=== PATIENT | male | born 1990 | race African-American/Black ===

== ENCOUNTER 2017-01-13 15:21 | Emergency (ER) | payer MEDICARE, OTHER ==
[2017-01-13 16:06] VITALS: RESP 18
[2017-01-13] MEDS ORDERED: ORPHENADRINE 30 MG/ML 2 ML VIAL IVP STA (16:45)
[2017-01-13] MEDS ORDERED: METOCLOPRAMIDE 5 MG/ML 2 ML VIAL IVP STA (16:46)
[2017-01-13] MEDS ORDERED: diphenhydrAMINE 50 MG/ML 1 ML VIAL IVP STA (16:46)
--- NOTE | 2017-01-13 16:49 | ED ---
Headache HPI - General Chief Complaint: Headache Stated Complaint: Headache Time Seen by Provider: 01/13/17 16:34 Source: RN notes reviewed Mode of arrival: ambulatory - History of Present Illness Initial Comments: Patient is a 26-year-old male complaining of migraine-like headaches consistently for the past month. Patient reports these never had symptoms like this before. Patient reports these been taking bottles of Motrin, Tylenol and Excedrin to help with the headache however nothing is made any better. Patient states that when the headaches do occur they're 10. He states that he has to sleep them off of them to go away. Patient denies any pain at this time until the headache coming on. He states that he is concerned that there may be something wrong with his brain. Patient states that he has had no neurological abnormalities. He currently is not working. Patient states that he is currently living with his girlfriend and 4 children. He states on the headaches to currently happening the room dark. - Related Data Previous Rx's Medication Instructions Recorded Butalb/Asprin/Caff 50-325-40Mg 1 - 2 cap PO Q4HR #12 capsule 01/13/17 [Fiorinal 50-325-40 MG] Allergies Allergy/AdvReac Type Severity Reaction Status Date / Time No Known Allergies Allergy Verified 01/13/17 16:52 Review of Systems ROS Statement: Those systems with pertinent positive or pertinent negative responses have been documented in the HPI. ROS Other: All systems not noted in ROS Statement are negative. Past Medical History Past Medical History: No Reported History History of Any Multi-Drug Resistant Organisms: None Reported Past Surgical History: No Surgical Hx Reported Past Psychological History: No Psychological Hx Reported Smoking Status: Current every day smoker Past Alcohol Use History: None Reported Past Drug Use History: None Reported General Exam - General Exam Comments Initial Comments: Pleasant 26-year-old male. No distress. General appearance: alert, in no apparent distress Head exam: Present: atraumatic, normocephalic, normal inspection Eye exam: Present: normal appearance, PERRL, EOMI. Absent: scleral icterus, conjunctival injection, periorbital swelling ENT exam: Present: normal exam, mucous membranes moist Neck exam: Present: normal inspection. Absent: tenderness, meningismus, lymphadenopathy Respiratory exam: Present: normal lung sounds bilaterally. Absent: respiratory distress, wheezes, rales, rhonchi, stridor Cardiovascular Exam: Present: regular rate, normal rhythm, normal heart sounds. Absent: systolic murmur, diastolic murmur, rubs, gallop, clicks GI/Abdominal exam: Present: soft, normal bowel sounds. Absent: distended, tenderness, guarding, rebound, rigid Extremities exam: Present: normal inspection, full ROM, normal capillary refill. Absent: tenderness, pedal edema, joint swelling, calf tenderness Back exam: Present: normal inspection Neurological exam: Present: alert, oriented X3, CN II-XII intact Expanded Patient oriented to: Present: person, place, time Speech: Present: fluid speech Cranial nerves: EOM's Intact: Normal, Gag Reflex: Normal, Tongue Deviation: Normal Cerebellar function: Finger to Nose: Normal Upper motor neuron: Pronator Drift: Normal Sensory exam: Upper Extremity Light Touch: Normal, Upper Extremity Temperature: Normal, Lower Extremity Light Touch: Normal, Lower Extremity Temperature: Normal Motor strength exam: RUE: 5, LUE: 5, RLE: 5, LLE: 5 Eye Response: (4) open spontaneously Motor Response: (6) obeys commands Verbal Response: (5) oriented Ramses Total: 15 Psychiatric exam: Present: normal affect Skin exam: Present: warm, dry, intact, normal color. Absent: rash Course Vital Signs 01/13/17 01/13/17 16:03 18:15 Temperature 99 F 97.1 F L Pulse Rate 71 77 Respiratory 18 18 Rate Blood Pressure 132/67 121/66 O2 Sat by Pulse 98 100 Oximetry Medical Decision Making - Medical Decision Making Patient is a 26 year old male with headaches for one month. Labs reviewed and patient given migraine cocktail. Patient CT negative for any acute process. Patient is neurologically intact. discussed to keep a headache journal and follow up with neurologist. patient reports he does not have a headache at this time. Discussed return parameters and patient can be discharged with fioret prescrcription. Patient understands treatment plan and will comply. - Lab Data Result diagrams: 01/13/17 16:58 01/13/17 16:58 Lab Results 01/13/17 01/13/17 Range/Units 16:58 16:58 WBC 4.9 (3.8-10.6) k/uL RBC 4.57 (4.30-5.90) m/uL Hgb 13.8 (13.0-17.5) gm/dL Hct 43.6 (39.0-53.0) % MCV 95.4 (80.0-100.0) fL MCH 30.3 (25.0-35.0) pg MCHC 31.8 (31.0-37.0) g/dL RDW 13.1 (11.5-15.5) % Plt Count 222 (150-450) k/uL Neutrophils % 50 % Lymphocytes % 42 % Monocytes % 4 % Eosinophils % 2 % Basophils % 1 % Neutrophils # 2.4 (1.3-7.7) k/uL Lymphocytes # 2.0 (1.0-4.8) k/uL Monocytes # 0.2 (0-1.0) k/uL Eosinophils # 0.1 (0-0.7) k/uL Basophils # 0.1 (0-0.2) k/uL Sodium 142 (137-145) mmol/L Potassium 4.2 (3.5-5.1) mmol/L Chloride 105 (98-107) mmol/L Carbon Dioxide 27 (22-30) mmol/L Anion Gap 10 mmol/L BUN 19 (9-20) mg/dL Creatinine 0.88 (0.66-1.25) mg/dL Est GFR (MDRD) Af Amer >60 (>60 ml/min/1.73 sqM) Est GFR (MDRD) Non-Af >60 (>60 ml/min/1.73 sqM) Glucose 95 (74-99) mg/dL Calcium 9.8 (8.4-10.2) mg/dL Disposition Clinical Impression: Migraines Disposition: HOME SELF-CARE Condition: Good Instructions: Acute Headache (ED) Additional Instructions: Patient advised to follow with a primary care provider and make a headache diary in regards to the frequency and intensity of headaches. Patient advised to take the Fioricet as well as Motrin Tylenol for headaches. Recommended applying ice to the back and neck within that does occur. Return the emergency department if any alarming signs or symptoms occur. Prescriptions: Butalb/Asprin/Caff 50-325-40Mg [Fiorinal 50-325-40 MG] 1 - 2 cap PO Q4HR #12 capsule Referrals: Isma Olson MD [REFERRING] - 1-2 days Rosanna Braga MD [STAFF PHYSICIAN] - 1-2 days Time of Disposition: 17:57
[2017-01-13 17:10] LABS: Basophils # (A) 0.1 k/uL (0-0.2); Basophils % (A) 1 %; CH 30.5; CHCM 32.1; Eosinophils # (A) 0.1 k/uL (0-0.7); Eosinophils % (A) 2 %; HCT 43.6 % (39.0-53.0); HDW 2.07; HGB 13.8 gm/dL (13.0-17.5); Luc % (Auto) 2; Lymphocytes % (A) 42 %; MCH 30.3 pg (25.0-35.0); MCHC 31.8 g/dL (31.0-37.0); MCV 95.4 fL (80.0-100.0); Mean Platelet Volume 7.1; Monocytes # (A) 0.2 k/uL (0-1.0); Monocytes % (A) 4 %; Neutrophils # (A) 2.4 k/uL (1.3-7.7); Neutrophils % (A) 50 %; RBC 4.57 m/uL (4.30-5.90); RDW 13.1 % (11.5-15.5); WBC 4.9 k/uL (3.8-10.6); WBC (Perox) 4.96
[2017-01-13 17:25] LABS: Anion Gap 10 mmol/L; Blood Urea Nitrogen 19 mg/dL (9-20); Calcium 9.8 mg/dL (8.4-10.2); Carbon Dioxide 27 mmol/L (22-30); Chloride 105 mmol/L (98-107); Glucose 95 mg/dL (74-99); Non-African American GFR(MDRD) >60 (>60 ml/min/1.73 sqM); Potassium 4.2 mmol/L (3.5-5.1); Sodium 142 mmol/L (137-145)
--- NOTE | 2017-01-13 17:47 | CT ---
EXAMINATION TYPE: CT brain wo con DATE OF EXAM: 01/13/2017 5:30 PM COMPARISON: NONE HISTORY: Severe headache CT DLP: 1054.2 mGycm. Automated Exposure Control for Dose Reduction was Utilized. TECHNIQUE: CT scan of the head is performed without contrast. FINDINGS: There is no acute intracranial hemorrhage, mass effect, or midline shift identified. The ventricles and sulci are within normal limits in size. Sabillon-white matter differentiation is maintai tito. The globes are intact and the visualized sinuses are clear. IMPRESSION: No acute intracranial hemorrhage, mass effect, or midline shift is seen. Unremarkable st udy.
[2017-01-13 18:15] VITALS: BP 121/66; PULSE 77; TEMP 97.1
== END 2017-01-13 18:14 | disposition home or self-care (01) ==
LOC: EC 15:21
DX: G43.909 Migraine, unspecified, not intractable, without status migrainosus (principal); F17.200 Nicotine dependence, unspecified, uncomplicated
CPT/HCPCS: 36415; 80048; 85025; 70450; 99284; 96374; 96375 ×2; J1200; J2360; J2765

== ENCOUNTER 2023-02-06 17:55 | Emergency (ER) | payer MEDICARE, OTHER ==
[2023-02-06 18:01] VITALS: RESP 18
[2023-02-06 18:37] VITALS: PULSE 79; TEMP 98.7
--- NOTE | 2023-02-06 19:01 | ED ---
Recheck HPI - General Chief Complaint: Extremity Problem,Nontraumatic Stated Complaint: abn labs Time Seen by Provider: 02/06/23 18:40 Source: patient, police, RN notes reviewed, old records reviewed Mode of arrival: ambulatory Limitations: no limitations - History of Present Illness Initial Comments: This is a 32-year-old male DF for evaluation patient Dese for evaluation regards to abnormal outpatient lab tests. Patient presents from incarceration and presents today for evaluation of abnormal labs patient is unsure of abnormal labs patient presents as officer who is also unsure of what his abnormal labs are. Patient himself has no complaints does admit to joint pain joint pain for over a year with improvement with naproxen. MD Complaint: abnormal lab (Elevated sed rate, increased inflammatory markers or autoimmune markers) -: unknown Returns Today for: Called Because of Abnormal Lab/Test, persistent/worsening pain related to initial visit (Patient has had joint pain for over a year) Symptoms Since Prior Visit: worsening pain Associated Symptoms: none Treatments Prior to Arrival: Given Pain Meds on - Related Data Previous Rx's Medication Instructions Recorded Butalb/Asprin/Caff 50-325-40Mg 1 - 2 cap PO Q4HR #12 capsule 01/13/17 [Fiorinal 50-325-40 MG] Allergies Allergy/AdvReac Type Severity Reaction Status Date / Time No Known Allergies Allergy Verified 02/06/23 18:00 Review of Systems ROS Statement: Those systems with pertinent positive or pertinent negative responses have been documented in the HPI. ROS Other: All systems not noted in ROS Statement are negative. Past Medical History Past Medical History: No Reported History Additional Past Medical History / Comment(s): Arthritis History of Any Multi-Drug Resistant Organisms: None Reported Past Surgical History: No Surgical Hx Reported Past Psychological History: Anxiety, Depression Smoking Status: Current every day smoker Past Alcohol Use History: None Reported Past Drug Use History: None Reported General Exam Limitations: no limitations General appearance: alert, in no apparent distress Head exam: Present: atraumatic, normocephalic, normal inspection Eye exam: Present: normal appearance, PERRL, EOMI. Absent: scleral icterus, conjunctival injection, periorbital swelling ENT exam: Present: normal exam, mucous membranes moist Neck exam: Present: normal inspection. Absent: tenderness, meningismus, lymphadenopathy Respiratory exam: Present: normal lung sounds bilaterally. Absent: respiratory distress, wheezes, rales, rhonchi, stridor Cardiovascular Exam: Present: regular rate, normal rhythm, normal heart sounds. Absent: systolic murmur, diastolic murmur, rubs, gallop, clicks GI/Abdominal exam: Present: soft, normal bowel sounds. Absent: distended, tenderness, guarding, rebound, rigid Extremities exam: Present: normal inspection, full ROM, normal capillary refill. Absent: tenderness, pedal edema, joint swelling, calf tenderness Back exam: Present: normal inspection Neurological exam: Present: alert, oriented X3, CN II-XII intact Psychiatric exam: Present: normal affect, normal mood Skin exam: Present: warm, dry, intact, normal color. Absent: rash Course Vital Signs 02/06/23 02/06/23 02/06/23 17:57 18:26 18:27 Temperature 98.1 F 98.7 F Pulse Rate 90 79 Respiratory 18 18 Rate Blood Pressure 126/79 120/79 120/79 O2 Sat by Pulse 100 100 100 Oximetry 02/06/23 02/06/23 02/06/23 18:30 18:40 18:50 Temperature Pulse Rate Respiratory Rate Blood Pressure 120/79 122/76 122/76 O2 Sat by Pulse 100 100 100 Oximetry 02/06/23 02/06/23 02/06/23 19:00 19:10 19:20 Temperature Pulse Rate Respiratory Rate Blood Pressure 122/76 117/77 117/77 O2 Sat by Pulse 100 100 100 Oximetry 02/06/23 19:30 Temperature Pulse Rate Respiratory Rate Blood Pressure 117/77 O2 Sat by Pulse 100 Oximetry - Reevaluation(s) Reevaluation #1: 02/06/23 21:19 Medical records reviewed Reevaluation #2: 02/06/23 21:19 In speaking with patient he states joint pain is well-controlled with naproxen where he is incarcerated, he states he is out in 1 week from incarceration and will follow up with rheumatology as an outpatient, informed lab values are nothing of emergent evaluation currently and patient can be discharged home to follow-up Reevaluation #3: 02/06/23 21:20 Patient informed of results and questions answered Reevaluation #4: 02/06/23 21:20 Was pt. sent in by a medical professional or institution? @ -yes skilled nursing where he is incarcerates Did you speak to anyone other than the patient for history? @ -no Did you review nursing and triage notes? @ -agree Were old charts reviewed? @ -yes prior lab values Differential Diagnosis? @ -prior EKG interpreted by me (3pts min.)? @ -no X-rays interpreted by me (1pt min.)? @ -no CT interpreted by me (1pt min.)? @ -no U/S interpreted by me (1pt. min.)? @ -no What testing was considered but not performed? (CT, X-rays, U/S, labs)? Why? @ -no What meds were considered but not given? Why? @ -no Did you discuss the management of the patient with other professionals? @ -no Did you reconcile home meds? @ -no Was smoking cessation discussed for >3mins.? @ -no Was critical care preformed (if so, how long)? @ -no Were there social determinants of health that impacted care today? How? (Homelessness, low income, unemployed, alcoholism, drug addiction, transportation, low edu. Level, literacy, decrease access to med. care, skilled nursing, rehab)? @ -incarceration Was there de-escalation of care discussed even if they declined? (Discuss DNR or withdrawal of care, Hospice)? @ -no What co-morbidities impacted this encounter? (DM, HTN, Smoking, COPD, CAD, Cancer, CVA, Hep., AIDS, mental health diagnosis, sleep apnea, morbid obesity)? @ -no Was patient admitted / discharged? @ -dc Undiagnosed new problem with uncertain prognosis? @ -no Drug Therapy requiring intensive monitoring for toxicity (Heparin, Nitro, Insulin, Cardizem)? @ -no Were any procedures done? @ -no Diagnosis/symptom? @ -arthritis Acute, or Chronic, or Acute on Chronic? @ -acute on chronic Uncomplicated (without systemic symptoms) or Complicated (systemic symptoms)? @ -uncomplicated Side effects of treatment? @ -none Exacerbation, Progression, or Severe Exacerbation] @ - Poses a threat to life or bodily function? @ -no Medical Decision Making - Medical Decision Making Anyone male DF for evaluation of abnormal outpatient lab values elevated sed rate as well as inflammatory markers for autoimmune disease. Patient will continue follow-up when he gets out of incarceration he is agreeable to that plan. Naproxen controlled pain well now and patient can be discharged home, clear for incarceration Disposition Clinical Impression: Arthritis, Autoimmune disease, Joint pain Disposition: HOME SELF-CARE Condition: Good Instructions (If sedation given, give patient instructions): Arthritis (ED) Is patient prescribed a controlled substance at d/c from ED?: No Referrals: None,Stated [Primary Care Provider] - 1-2 days Time of Disposition: 19:00
[2023-02-06 19:33] VITALS: BP 117/77
== END 2023-02-06 19:33 | disposition home or self-care (01) ==
LOC: EC 17:55
DX: M35.9 Systemic involvement of connective tissue, unspecified (principal); M19.90 Unspecified osteoarthritis, unspecified site; M25.50 Pain in unspecified joint; F17.200 Nicotine dependence, unspecified, uncomplicated; Z86.59 Personal history of other mental and behavioral disorders
CPT/HCPCS: 99283